=== PATIENT | male | born 1995 | race Caucasian/White ===

== ENCOUNTER 2018-06-14 00:46 | Emergency (ER) | payer BC ==
[~2018-06-14] VITALS: Ht 172.7 cm; Wt 57.0 kg
[2018-06-14 00:50] VITALS: BP 132/82
== END 2018-06-14 01:42 | disposition left against medical advice (07) ==
LOC: ER 00:46
DX: F41.9 Anxiety disorder, unspecified (principal); Z53.21 Procedure and treatment not carried out due to patient leaving prior to being seen by health care provider